=== PATIENT | female | born 1960 | race African-American/Black ===

== ENCOUNTER 2023-05-16 14:30 | Emergency (ER) | payer OTHER ==
[2023-05-16 14:47] VITALS: TEMP 98.2; BMI 29.5
[2023-05-16] MEDS ORDERED: ACETAMINOPHEN 500 MG TABLET (FP) PO ONE (15:56)
[2023-05-16] MEDS ORDERED: ACETAMINOPHEN 325 MG TABLET (FP) ONE (16:26)
[2023-05-16 17:34] LABS: BASO % 0.6 % (0-2.0); EOS % 2.4 % (0-4.5); HEMATOCRIT 40.9 % (32.4-45.2); HEMOGLOBIN 14.1 GM/dL (10.7-15.3); LYMPH % 42.8 % (8-40); MCH 29.9 pg (25.7-33.7); MCHC 34.5 g/dl (32.0-36.0); MEAN CELL VOLUME 86.6 fl (80-96); MEAN PLT VOLUME 8.6 fl (7.5-11.1); MONO % 6.9 % (3.8-10.2); NEUT % 47.3 % (42.8-82.8); PLATELET COUNT 259 10^3/uL (134-434); RBC 4.72 M/mm3 (3.60-5.2); RDW 13.6 % (11.6-15.6); WHITE BLOOD COUNT 4.3 K/mm3 (4.0-10.0)
[2023-05-16 17:38] LABS: INR 0.97 (0.83-1.09); PROTHROMBIN TIME (PATIENT) 11.3 SEC (9.7-13.0)
[2023-05-16 17:41] LABS: ACTIVATED PTT 31.9 SECONDS (25.2-36.5)
[2023-05-16 17:44] LABS: POTASSIUM 4.2 mmol/L (3.5-5.1)
[2023-05-16 17:47] LABS: ALBUMIN 3.9 g/dl (3.4-5.0); BLOOD UREA NITROGEN 16.8 mg/dL (7-18); MAGNESIUM 2.3 mg/dL (1.8-2.4)
[2023-05-16 17:52] LABS: BILIRUBIN,TOTAL 0.5 mg/dL (0.2-1); TOT PROT 7.5 g/dl (6.4-8.2)
[2023-05-16 19:46] VITALS: BP 145/78; PULSE 74; RESP 18
== END 2023-05-16 21:00 | disposition home or self-care (01) ==
LOC: JER 14:30
DX: R07.89 Other chest pain (principal); M25.512 Pain in left shoulder
CPT/HCPCS: 36415; 71045-TC-FY; 71275-TC; 80053; 83735; 83880; 84484; 85025; 85610; 85730; 93005; 93010; 99285-25; Q9967